=== PATIENT | male | born 1955 ===

== ENCOUNTER 2017-04-23 08:24 | Day surgery (SDC) | payer OTHER ==
[~2017-04-23 08:24] MED LIST: Buffered Lidocaine 0.9% SYRIN* 5 ML/SYR SYRINGE INTRADERM ONE; Dexamethasone IV* 4 MG/ML 1 ML (4 MG) IV SLOW PU ONE; Famotidine IV* 10 MG/ML 2 ML (20 mg) IV ONE
[2017-04-23] MEDS ORDERED: Famotidine IV* 10 MG/ML 2 ML (20 mg) ONE (08:37)
[2017-04-23] MEDS ORDERED: ceFAZolin 2 GM PREMIX (*) 2 GM/50 ML BAG IVPB ONE (08:38)
[2017-04-23] MEDS ORDERED: Dexamethasone IV* 4 MG/ML 1 ML (4 MG) ONE (08:38)
[2017-04-23] MEDS ORDERED: Buffered Lidocaine 0.9% SYRIN* 5 ML/SYR SYRINGE ONE (08:38)
[2017-04-23] MEDS ORDERED: fentaNYL* 50 MCG/ML 2 ML VIAL (100 MCG VIAL) ONE (10:15)
[2017-04-23] MEDS ORDERED: Midazolam* 1 MG/ML 5 ML VIAL (5 MG) ONE (10:15)
[2017-04-23] MEDS ORDERED: Ondansetron INJ* 2 MG/ML VIAL ONE (10:15)
[2017-04-23] MEDS ORDERED: Mineral Oil Sterile, TOPICAL* 25 ML BTL ONE (10:43)
[2017-04-23] MEDS ORDERED: Methylene Blue 0.5 %* 50 MG/10 ML AMP IV ONE (10:43)
[2017-04-23] MEDS ORDERED: Lidocaine 1% MPF wEPI 200,000* 30 ML SDV ONE (10:43)
[2017-04-23] MEDS ORDERED: Bupivacaine 0.25% SDV* 30 ML ONE (10:43)
[2017-04-23] MEDS ORDERED: Glycopyrrolate IV* 0.2 MG/ML 1 ML VIAL ONE (11:03)
[2017-04-23 12:36] VITALS: BP 131/83
== END 2017-04-23 12:44 | disposition home or self-care (01) ==
LOC: OR 08:24
PROVIDERS: ATTEND Plastic Surgery
DX: C44.311 Basal cell carcinoma of skin of nose (principal); C44.319 Basal cell carcinoma of skin of other parts of face
CPT/HCPCS: 88305; 88331; 88332; A9270-GY; J0690; J1100; J2001; J2250; J2405; J3010